=== PATIENT | male | born 1945 | race Caucasian/White ===

== ENCOUNTER → 2017-04-26 | Outpatient (CLI) | payer OTHER, MEDICARE | LOC: FIMAGING 13:01 | PROVIDERS: ATTEND Internal Medicine | DX: J98.09 Other diseases of bronchus, not elsewhere classified (principal) ==

== ENCOUNTER 2017-05-04 16:13 | Inpatient (IN) | payer OTHER, MEDICARE ==
[2017-05-04] MEDS ORDERED: ACETAMINOPHEN 325 MG TAB PO PRN (17:23)
[2017-05-04] MEDS ORDERED: ONDANSETRON 4 MG/2 ML VIAL IVP PRN (17:23)
[2017-05-04] MEDS ORDERED: ONDANSETRON DISINTEGRATING 4 MG TAB PO PRN (17:23)
[2017-05-04] MEDS ORDERED: TEMAZEPAM 15 MG CAP PO PRN (17:23)
[2017-05-04] MEDS: D5W 1/2 NS W/ 20 KCl/L 1,000 ML IV SCH (18:41)
--- NOTE | 2017-05-04 19:07 | GCON ---
[f rep st] CONSULTATION DATE OF CONSULTATION: 05/04/2017 CHIEF COMPLAINT: Diarrhea with malaise. HISTORY OF PRESENT ILLNESS: This is an otherwise healthy 72-year-old male who presented to his primary care provider in the middle of this month complaining of a week-long history of diarrhea. At that time, the patient stated that he was going to the bathroom about every hour to 2 hours and that the stools were usually liquid, without blood, without mucus, over the last week. The patient stated that the diarrhea persisted to the point where the patient was getting fairly fatigued, stating that whatever he took in usually came out pretty quickly, although he was still eating and able to take in his daily meals. Other than the diarrhea and just a general feeling of exhaustion from having diarrhea for 2 weeks, the patient denies having any fevers, having any chills, or any abdominal pain. He states that his last colonoscopy was in 2008, and other than the finding of diverticulosis, had no significant findings. He also tells me today that he did a colorectal cancer DNA test a few years ago as well , which was also negative. Other than the diarrhea, the patient has no complaints today. PAST MEDICAL HISTORY: Hypothyroidism, hypertension, BPH, sleep apnea, seasonal allergies, allergic rhinitis, asthma. PAST SURGICAL HISTORY: Bilateral knee procedures done in the 60s, as well as a more recent scope. Denies having any abdominal surgeries. Most recent colonoscopy was in 2008 and per his report was negative. FAMILY HISTORY: Negative for any colorectal cancer. Father from testicular or liver cancer, the patient is unclear. SOCIAL HISTORY: Retired systems software manager. Denies illicit drug use. Social drinker. Denies tobacco use. CURRENT MEDICATIONS: Reviewed. No blood thinners other than a baby aspirin daily. REVIEW OF SYSTEMS: A full 10-point review was performed. PHYSICAL EXAMINATION: VITAL SIGNS: Temperature 36.4, blood pressure 110/69, heart rate 89, he is 93% on room air. CONSTITUTIONAL: He is in no distress. He appears comfortable. HEENT: Eyes: His pupils are equal, round, reactive to light and accommodation. He has anicteric sclerae. His extraocular movements are intact. Ears, nose, mouth, throat: He has dry mucous membranes. His hearing is normal. His ears appear normal and he has no oral mucosal ulcers. CARDIOVASCULAR: He has a regular rate and rhythm without any appreciable murmurs. RESPIRATORY: He has no respiratory distress, rales, or rhonchi, and he is clear to auscultation. GI: He has normoactive bowel sounds. His abdomen is soft, nondistended, nontender without any appreciable masses. No rebound tenderness or guarding. RECTAL: External anal opening has signs of excoriation consistent with multiple weeks of diarrhea. External hemorrhoids are normal. Digital rectal exam shows stool within the rectal vault. No masses appreciated. Maybe some minimal thickening of the rectal wall , but nothing else appreciable. SKIN: Warm. Normal color. No rashes or abrasions. MUSCULOSKELETAL: Full strength. No tenderness. Normal joint range of motion. NEUROLOGIC: Alert and oriented x3. His cranial nerves 2-12 are intact. He has no weakness, no numbness. PSYCHIATRIC: He is interacting appropriately. He is not anxious, he is not encephalopathic, and his thought process is linear. LYMPHATIC/HEMATOLOGIC/IMMUNOLOGIC: No cervical, supraclavicular or groin lymphadenopathy appreciated. LABORATORY DATA: He had labs performed earlier today on an outpatient basis, which are significant for a leukocytosis to 19,000 with a left shift. His chemistry is largely unremarkable with the exception of an elevated CRP at 235. IMAGING: Includes a CT of the abdomen and pelvis with IV contrast, the images of which were personally reviewed. They show a significant amount of diverticulosis within the sigmoid colon. There is also a complex collection versus phlegmon anteriorly to a thickened rectum about 6-7 cm above the anal verge measuring 4 x 5 cm without any gas within it. ASSESSMENT AND PLAN: A 72-year-old male with what I would call chronic diarrhea and CT scan findings of a fluid collection. On my initial assessment, I would favor infectious process over cancerous given the patient's normal colonoscopy, as well as his normal DNA test performed recently. In addition, he also has a significant leukocytosis and what appears to be a fluid collection consistent with some kind of proctitis or diverticulitis. I do not appreciate anything on digital rectal exam, so I feel that the mass is probably higher than 6-7 cm. His clinical examination at this point in time is very reassuring. His abdomen is soft, his vital signs are stable, and he is overall well appearing. I feel that gastroenterology consultation will be beneficial. Should they see him fit for some kind of diagnostic endoscopy, I feel that this would help us make a diagnosis of malignancy versus infection, as I feel that would change the management process given his overall stability, so that we could make a definitive plan for drainage versus definitive cancer resection. We will plan to follow along and anxiously await those results. I discussed my tentative plan with the patient. He was willing to proceed at this point in time. I do agree with intravenous antibiotics, as I do feel that this more than likely at least has a component of infection at this time. /[id number]/MODL MTDD
[2017-05-05] MEDS: D5W 1/2 NS W/ 20 KCl/L 1,000 ML IV SCH (02:36)
[2017-05-05 05:33] LABS: PLATELET COUNT 307 10^3/uL (150-400)
--- NOTE | 2017-05-05 12:46 | ASMTCMCOM ---
CM Note CM Note Notes: Spoke w/RN, anticipate pt will dc home w/support of when medically stable. No therapies ordered, CM available for any changes. DC Plan: Independent Date Signed: 05/05/2017 12:45 PM Electronically Signed By:Priscila Pham RN
[2017-05-05] MEDS ORDERED: MIDAZOLAM 2 MG/2 ML VIAL ONE ×2 (13:58)
[2017-05-05] MEDS ORDERED: fentaNYL 100 MCG/2 ML INJ ONE ×2 (13:59→14:16)
--- NOTE | 2017-05-05 14:33 | GIREPORT ---
[facility] - Endoscopy Department Patient Name: Junaid Deluca Procedure Date: 05/05/2017 2:09 PM Patient Type: Inpatient Attending MD/ ER Physician: Benigno Bowers MD Procedure: Flexible Sigmoidoscopy Indications: Generalized abdominal pain, Abnormal CT of the GI tract Providers: Benigno Bowers MD Medicines: Fentanyl 125 micrograms IV, Midazolam 5 mg IV Complications: No immediate complications. Description of Procedure: After obtaining informed consent, the endoscope was passed under direct vision. Throughout the procedure, the patient's blood pressure, pulse, and oxygen saturations were monitored continuously. The Endoscope was intro duced through the anus and advanced to the left transverse colon. The flexibl e sigmoidoscopy was accomplished without difficulty. The patient tolerate d the procedure well. The quality of the bowel preparation was good. Moderate Sedation: Moderate (conscious) sedation was administered by the endoscopy nurse andrew funes supervised by the endoscopist. The following parameters were monitored: oxygen saturation, heart rate, blood pressure, and response to care. To torsten physician intraservice time was 27 minutes. Findings: Multiple small and large-mouthed diverticula were found in the sigmoid colon. An area of moderately congested mucosa was found in the sigmoid colon. Biopsies were taken with a cold forceps for histology. Estimated Blood Loss: Estimated blood loss: none. Estimated blood loss: none. Post Op Diagnosis: - Diverticulosis in the sigmoid colon. - Congested mucosa in the sigmoid colon. Biopsied. Recommendation: - [facility] to [facility] care. - Advance diet as tolerated. - Await pathology results. - Favor diagnosis of diverticulitis. IBD, malignancy, infection, ischem ia on differential diagnosis, but less likely. - Continue IV antibiotics. Attending Participation: I personally performed the entire procedure. Benigno Bowers MD Benigno Bowers MD 05/05/2017 2:32:22 PM This report has been signed electronicallyBenigno Bowers MD Number of Addenda: 0 Note Initiated On: 05/05/2017 2:09 PM Total Procedure Duration Time 0 hours 12 minutes 38 seconds [email or web address]
[2017-05-05] MEDS ORDERED: MIDAZOLAM 2 MG/2 ML VIAL IVP ONE (14:34)
[2017-05-05] MEDS ORDERED: fentaNYL 100 MCG/2 ML INJ IVP ONE (14:34)
--- NOTE | 2017-05-05 15:17 | GCON ---
[f rep st] CONSULTATION INPATIENT CONSULTATION REFERRING PHYSICIAN: Shane Deshpande MD REASON FOR CONSULTATION: Abdominal pain and abnormal x-ray. CHIEF COMPLAINT: Abdominal pain. HISTORY OF PRESENT ILLNESS: Briefly, the patient is a pleasant 72-year-old male who has been evaluat ed through his primary care physician over the last several weeks related to abdominal symptoms. He is reporting some diarrhea, cramping, and urgency with bowel movements. He gradually had symptoms of weakness and fatigue. With gradually worsening symptoms, he underwent CAT scan evaluation. CAT sca n revealed a diverticulosis area of the sigmoid colon with a complicated collection versus phlegmon a nteriorly to a thickened rectum just above the anal verge. This measured approximately 5 cm. In the setting of this radiographic finding and his ongoing symptoms, he was admitted to the hospital for s urgical and GI evaluation. PAST MEDICAL HISTORY: Includes hypothyroidism, hypertension, sleep apnea, seasonal allergies. PAST SURGICAL HISTORY: Includes knee surgery. He has had no abdominal surgeries. He reports his [facility] colonoscopy was in 2008 and was normal. FAMILY HISTORY: Negative for colon cancer or colon polyps. SOCIAL HISTORY: He drinks occasionally. Does not use drugs or smoke tobacco. ALLERGIES: To oxaprozin and penicillin. MEDICATIONS: His current medications are Tylenol, Zofran, temazepam, levofloxacin and metronidazole. His outpatient medicines included Flovent, hydrochlorothiazide, levothyroxine, lisinopril, Qvar, [place], albuterol, and Zithromax. REVIEW OF SYSTEMS: A complete 14-point review was undertaken with the patient and is negative except for the details described in the history of present illness. PHYSICAL EXAM: GENERAL: This is a well-developed male, in no apparent distress. HEENT: His pupils are equal, round, reactive to light and accommodation. His sclerae are nonicteric. His oropharynx is clear. NECK: Supple, without lymphadenopathy. HEART: Regular without murmur. ABDOMEN: Soft w ith mild tenderness in the left lower quadrant. EXTREMITIES: Free of cyanosis, clubbing, and edema. NEURO: Grossly nonfocal. PSYCH: Reveals normal mood and affect. SKIN: Without lesions. EXTREM ITIES: His joints show no arthritis. LABORATORY TESTING: Shows a white count of 11.3, hemoglobin of 12.5, hematocrit of 38.4. CT scan on 05/04/2017 revealed a complex collection/mass/phlegmon anterior to a markedly thickened re ctum. IMPRESSION AND RECOMMENDATIONS: Abdominal symptoms with abdominal pain. Overall, I am suspicious fo r complications of diverticulitis. The differential diagnosis could also include inflammatory bowel disease, infection, ischemia, or malignancy. In order to resolve this differential diagnosis, I marcia mmend he undergo flexible sigmoidoscopy. Due to underlying sleep apnea and asthma, he is at increase d risk of conscious sedation, but I do not think those risks outweigh the potential benefits. Meanwh ile, he should continue on IV antibiotics. Appreciate surgical help as in the case that this may be related to complications of diverticulitis, surgical care and direction will be critical. /[id number]/MODL
[2017-05-05] MEDS ORDERED: ALBUTEROL 60 PUFFS/8 GM MDI IH PRN (15:51)
[2017-05-05] MEDS ORDERED: CHLORPHENIRAMINE MALEATE 4 MG TAB PO PRN (15:51)
--- NOTE | 2017-05-05 16:17 | GHP ---
[f rep st] HISTORY AND PHYSICAL DATE OF ADMISSION: 05/04/2017 CHIEF COMPLAINT: Fever, abdominal discomfort, diarrhea, constipation, malaise. HISTORY OF PRESENT ILLNESS: The patient is a generally healthy 72-year-old white male. He has had an ongoing cough for the last month likely related to an upper respiratory infection, bronchitis perhaps with some reactive airway disease. He has had a chest x-ray recently and that can be seen in the system. This has actually been getting better. On a separate note, while he was dealing with the cough, he developed loose stools about 3-weeks ago and has had intermittent problems with that, most recently that turning into constipation. I saw him in the office today, 2017, and he seemed a little bit confused with description of diarrhea and constipation scenario. The day prior, based on a phone conversation where he described constipation we had used milk of magnesia and an fleets enema, and his bowel movements were better. When I saw him in the office on the , he looked tired, weak, and his noted that she thought he was looking worse on a daily basis. We proceeded with lab work based on abdominal discomfort, the story of worsening, and an abnormal rectal exam, this demonstrated significant abnormalities of significantly elevated white blood cell count of 19.18 with 88 % neutrophils and 16.87 ANC. ESR was elevated at 31, and CRP elevated at 235. Followup CT scan of the abdomen and pelvis primarily looking for diverticulitis or other noted a significant abnormal CT of the abdomen and pelvis with a fluid collection concerning for infection or cancer. Based on these results and the fact that the patient appeared to be getting worse in the last couple of days, direct admission was made to [facility] with consultation with General Surgery and Gastroenterology. I personally spoke with both consulting providers. REVIEW OF SYSTEMS: Complete Review of Systems was performed and otherwise negative except for the above situation. PAST MEDICAL HISTORY: Significant for hypertension, hyperlipidemia, coronary artery disease, benign prostatic hypertrophy, knee pain, asthma, reactive airway disease, hypothyroidism. CURRENT MEDICATIONS: Include: 1. Aspirin 81 mg. 2. Hydrochlorothiazide 12.5 mg once daily. 3. Levothyroxine 125 mcg once daily. 4. Lisinopril 20 mg once daily. 5. Montelukast. 6. Meloxicam. 7. Preservision. 8. ProAir. 9. Vitamin D. 10. Chlorpheniramine. ALLERGIES: 1. Penicillins, question rash. 2. Lorcet, unknown reaction. FAMILY HISTORY: Early in his father from coronary artery disease. SOCIAL HISTORY: No significant alcohol or tobacco. Lives at home with his . IMMUNIZATIONS: He is up to date on his current flu shot for this year. He is up to date on both pneumococcal vaccine. He is up to date on his tetanus. He is up to date on his shingles vaccine. PHYSICAL EXAMINATION: VITAL SIGNS: Blood pressure elevated at 172/92, heart rate 64, oxygen saturation 92%, he is afebrile. GENERAL: On exam, he looks weak and tired, and somewhat pale. He appears somewhat confused with slow recall. HEENT: Cranial nerves 2 through 12 are grossly intact. Hearing appears within normal limits. Oropharynx is normal. LUNGS: Clear to auscultation bilaterally. Normal work of breathing. No adventitious sounds. HEART: Regular rate and rhythm. ABDOMEN: Soft, no masses, there is left lower quadrant and suprapubic tenderness. RECTAL: Digital rectal exam demonstrates a hard, nodular prostate, question anterior mass, external hemorrhoids. SKIN: No concerning skin findings. NEURO: Gait within normal limits. DATA: See above for lab results and CT imaging. ASSESSMENT AND PLAN: 1. The patient is a 72-year-old white male with abdominal pain and abnormal lab and imaging studies. He is being admitted as a full admission. He has a significantly elevated white blood cell count and a fluid collection on CT of the abdomen and pelvis that likely needs either surgical care via general surgery or perirectal approach via Gastroenterology. This does not appear to be a self limiting situation. He will also need intravenous antibiotics. For these reasons he will be in the hospital for greater than 48-hours. This cannot be done in an outpatient setting. 2. The fluid collection on his CT scan is most likely diverticular disease ruptured. I will start him on levofloxacin and Flagyl. General Surgery and Gastroenterology will consult and guide therapy. Other components of the differential include a rectal cancer or inflammatory bowel disease. Blood cultures will be obtained prior to giving antibiotics. 3. Hypertension. He is markedly hypertensive as compared to his normally well- controlled blood pressure. He typically takes Lisinopril 20 mg once daily and hydrochlorothiazide 12.5 mg. The acute illness likely is pushing his blood pressure. We will make no changes. 4. His last colonoscopy was done 05/21/2008 and was normal. He will be due for a repeat colonoscopy in 2019. He did have Cologuard testing that was negative 05/07/2015. 5. Sleep apnea. He is controlled if he sleeps on his stomach or side. 6. Significant allergies, follows with Dr. Chin of [facility]. 7. Deep venous thrombosis prophylaxis at this point, will hold deep venous thrombosis prophylaxis until there is a better understanding if he will need to go to surgery or not. I do think he will be quite active and will encourage walking of the hospital floors while here 8. Code Status: He is full code. /[id number]/MODL MTDD
--- NOTE | 2017-05-05 16:26 | SOAPPROG ---
SOJAN[facility] Progress Note Assessment/Plan: Assessment/Plan: 72yi M c likely diverticular abscess - Symptomatically, he is doing much better today and states that he feels better with just a night of abx - discussed scope results with GI, favor diverticilar abscess, biopsies were taken - At this time given how good he looks clinically I would cont abx. I will discuss with IR whether or not this fluid collection is perc drainable as we await path. Would definitely continue antibiotics for the time being. Surgical drainage if decompensates, or fails to resolve with current regimen +/- perc drainage 05/05/17 16:23 Subjective: Feels much better, diarrhea is slowing. Objective: Vital Signs Temp Pulse Resp BP Pulse Ox 36.4 C 61 18 99/69 L 92 05/05/17 16:00 05/05/17 16:00 05/05/17 16:00 05/05/17 16:00 05/05/17 16:00 Laboratory Results 05/05/17 04:30 05/04/17 05/05/17 05/06/17 05:59 05:59 05:59 Intake Total 300 Balance 300 ICD10 Worksheet Patient Problems: Problems Problem Status Onset Colonic diverticular abscess Acute - ICD10 Problem Qualifiers (1) Colonic diverticular abscess
[2017-05-05] MEDS: ASPIRIN EC 81 MG TAB PO SCH (16:41)
[2017-05-06] MEDS: LEVOTHYROXINE 112 MCG TAB PO SCH (05:58)
[2017-05-06] MEDS: PRESERVISION AREDS2 FORMULA EYE VIT 1 EACH PO SCH (08:52)
[2017-05-06] MEDS: HYDROCHLOROTHIAZIDE 12.5 MG CAP PO SCH (08:53)
[2017-05-06] MEDS: LISINOPRIL 20 MG TAB PO SCH (08:53)
[2017-05-06] MEDS: MONTELUKAST SODIUM 10 MG TAB PO SCH (08:53)
[2017-05-06] MEDS: CHOLECALCIFEROL VIT D3 2,000 UNITS TAB/CAP PO SCH (08:53)
[2017-05-06] MEDS: CETIRIZINE 10 MG TAB PO SCH (08:54)
[2017-05-06] MEDS: ASPIRIN EC 81 MG TAB PO SCH (08:54)
--- NOTE | 2017-05-06 10:00 | SOAPPROG ---
SOAP Progress Note Assessment/Plan: Assessment/Plan: 1. Suspected Diverticulitis - improving on Abx - path specimen from flex sig pending (doubt malignancy, IBD, etc) - management largely per surgery at this point - hope to avoid operative need - will sign off, call with questions 05/06/17 09:58 Subjective: CC: f/u diverticulitis S: less pain no BMs last night tolerating po without trouble no fever no cough or sob Objective: Vital Signs Temp Pulse Resp BP Pulse Ox 36.7 C 80 18 127/89 H 95 05/06/17 07:31 05/06/17 07:31 05/06/17 07:31 05/06/17 08:53 05/06/17 07:31 Laboratory Results 05/05/17 04:30 05/05/17 05/06/17 05/07/17 05:59 05:59 05:59 Intake Total 850 Balance 850 Physical Exam - Physical Exam General Appearance: alert EENT: PERRL/EOMI Neck: non-tender Respiratory: lungs clear, normal breath sounds Cardiac/Chest: normal peripheral pulses, regular rate, rhythm, No edema Abdomen: normal bowel sounds, soft, No non-tender, No distended, No guarding Skin: normal color Extremities: normal range of motion Neuro/Psych: oriented x 3 ICD10 Worksheet Patient Problems: Problems Problem Status Onset Colonic diverticular abscess Acute
--- NOTE | 2017-05-06 10:06 | PDMN ---
Medical Necessity Medical necessity: est los>2mn for abd pain, elevated wbc, fluid collection per CT abd/pelvis, and elevated BP ; requires either surgical intervention vs perirectal approach per GI for fluid collection, and IV abx; comorbid CAD, HTN, NETO, asthma and RAD; per order 05/04/17 and H&P 05/05/17
--- NOTE | 2017-05-06 10:51 | SOAPPROG ---
SOJANINA Progress Note Assessment/Plan: Assessment/Plan: 72yi M c likely diverticular abscess - VSS, HDS - clinically continues to do and look well. He has no abdominal pain and his diarrhea is markedly improved - Path pending, but GI favoring infectious as am I from presentation - Given how well he looks clinically would continue IV antibiotics and await path. I discussed the case with radjaguar this AM and if path favors infectious we could get this perc drained. - Would still defer surgery for clinical decompensation or malignancy 05/05/17 16:23 05/06/17 10:49 Subjective: feels wonderful Objective: Vital Signs Temp Pulse Resp BP Pulse Ox 36.7 C 80 18 127/89 H 95 05/06/17 07:31 05/06/17 07:31 05/06/17 07:31 05/06/17 08:53 05/06/17 07:31 Laboratory Results 05/05/17 04:30 05/05/17 05/06/17 05/07/17 05:59 05:59 05:59 Intake Total 850 Balance 850 ICD10 Worksheet Patient Problems: Problems Problem Status Onset Colonic diverticular abscess Acute - ICD10 Problem Qualifiers (1) Colonic diverticular abscess
[2017-05-07] MEDS: LEVOTHYROXINE 112 MCG TAB PO SCH (05:27)
[2017-05-07 05:32] LABS: PLATELET COUNT 329 10^3/uL (150-400)
[2017-05-07] MEDS: HYDROCHLOROTHIAZIDE 12.5 MG CAP PO SCH (08:21)
[2017-05-07] MEDS: PRESERVISION AREDS2 FORMULA EYE VIT 1 EACH PO SCH (08:21)
[2017-05-07] MEDS: CHOLECALCIFEROL VIT D3 2,000 UNITS TAB/CAP PO SCH (08:22)
[2017-05-07] MEDS: LISINOPRIL 20 MG TAB PO SCH (08:22)
[2017-05-07] MEDS: ASPIRIN EC 81 MG TAB PO SCH (08:23)
[2017-05-07] MEDS: MONTELUKAST SODIUM 10 MG TAB PO SCH (08:23)
[2017-05-07] MEDS: CETIRIZINE 10 MG TAB PO SCH (08:23)
--- NOTE | 2017-05-07 09:38 | SOAPPROG ---
SOJANINA Progress Note Assessment/Plan: Assessment/Plan: 72yi M c likely diverticular abscess - VSS, HDS - Clinical picture still looks great, his abdomen remains soft and his diarrhea has essentially stopped - Path back this AM shows inflammation and no Ca. I think that we need to proceed with drainage as I anticipate that the fluid collection persists. This can either be done percutaneously or in OR. I think that he is good candidate for perc drainage. He wants to discuss with his PCP before proceeding. - Cont abx, hopefully get cx with drainage. 05/05/17 16:23 05/06/17 10:49 05/07/17 09:36 Subjective: Continues to feel well, denies pain. Objective: Vital Signs Temp Pulse Resp BP Pulse Ox 36.4 C 77 16 118/80 94 05/07/17 07:47 05/07/17 07:47 05/07/17 07:47 05/07/17 08:22 05/07/17 07:47 Laboratory Results 05/07/17 04:17 05/07/17 04:17 05/06/17 05/07/17 05/08/17 05:59 05:59 05:59 Intake Total 850 550 Balance 850 550 ICD10 Worksheet Patient Problems: Problems Problem Status Onset Colonic diverticular abscess Acute - ICD10 Problem Qualifiers (1) Colonic diverticular abscess
[2017-05-08 03:00] VITALS: RESP 16; TEMP 97.5
[2017-05-08] MEDS: LEVOTHYROXINE 112 MCG TAB PO SCH (05:14)
[2017-05-08 07:34] VITALS: BP 142/88; PULSE 66; O2SAT 94
[2017-05-08] MEDS: LISINOPRIL 20 MG TAB PO SCH (08:37)
[2017-05-08] MEDS: MONTELUKAST SODIUM 10 MG TAB PO SCH (08:38)
[2017-05-08] MEDS: PRESERVISION AREDS2 FORMULA EYE VIT 1 EACH PO SCH (08:38)
[2017-05-08] MEDS: ASPIRIN EC 81 MG TAB PO SCH (08:38)
[2017-05-08] MEDS: CETIRIZINE 10 MG TAB PO SCH (08:38)
[2017-05-08] MEDS: HYDROCHLOROTHIAZIDE 12.5 MG CAP PO SCH (08:38)
[2017-05-08] MEDS: CHOLECALCIFEROL VIT D3 2,000 UNITS TAB/CAP PO SCH (08:39)
[2017-05-08] MEDS ORDERED: metroNIDAZOLE 500 MG TAB PO SCH (14:00)
== END 2017-05-08 10:51 | disposition home or self-care (01) | DRG 392 ==
LOC: OBSVTOIN 17:21 → F3E 17:21
PROVIDERS: ADMIT Internal Medicine; ATTEND Internal Medicine
PROC: 0DBN8ZX Excision of Sigmoid Colon, Via Natural or Artificial Opening Endoscopic, Diagnostic (ICD-10-PCS; principal; 2017-05-05 14:06)
DX: K57.20 Diverticulitis of large intestine with perforation and abscess without bleeding (principal); R05 Cough; I25.10 Atherosclerotic heart disease of native coronary artery without angina pectoris; E78.5 Hyperlipidemia, unspecified; I10 Essential (primary) hypertension; N40.0 Benign prostatic hyperplasia without lower urinary tract symptoms; E03.9 Hypothyroidism, unspecified; J45.909 Unspecified asthma, uncomplicated; G47.30 Sleep apnea, unspecified
CPT/HCPCS: J1956; J2250; J3010

== ENCOUNTER → 2017-05-13 | Outpatient (CLI) | payer OTHER, MEDICARE ==
[~2017-05-13] MED LIST: IOPAMIDOL (ISOVUE-300) 100 ML BTL ONE
== END ==
LOC: FIMAGING 10:05
PROVIDERS: ATTEND Internal Medicine
DX: R93.3 Abnormal findings on diagnostic imaging of other parts of digestive tract (principal)
CPT/HCPCS: 74177; Q9967

== ENCOUNTER → 2017-06-03 | Outpatient (CLI) | payer OTHER, MEDICARE | LOC: FIMAGING 07:12 | PROVIDERS: ATTEND Internal Medicine | DX: S86.012A Strain of left Achilles tendon, initial encounter (principal); S96.812A Strain of other specified muscles and tendons at ankle and foot level, left foot, initial encounter ==

== ENCOUNTER → 2017-06-24 | Outpatient (CLI) | payer OTHER, MEDICARE | LOC: CIMAGING 09:11 | PROVIDERS: ATTEND Internal Medicine | DX: K57.30 Diverticulosis of large intestine without perforation or abscess without bleeding (principal); K59.00 Constipation, unspecified; N28.1 Cyst of kidney, acquired | CPT/HCPCS: 74177; Q9967 ==

== ENCOUNTER → 2018-01-29 | Outpatient (CLI) | payer OTHER, MEDICARE | LOC: FCPNEURO 23:46 | PROVIDERS: ATTEND Student in an Organized Health Care Education/Training Program | DX: G47.33 Obstructive sleep apnea (adult) (pediatric) (principal) ==

== ENCOUNTER → 2018-05-30 | Outpatient (CLI) | payer OTHER, MEDICARE ==
[~2018-05-30] MED LIST changes: +GADOBUTROL 10 ML VIAL IVP ONE; -IOPAMIDOL (ISOVUE-300) 100 ML BTL ONE
== END ==
LOC: FIMAGING 07:21
DX: C61 Malignant neoplasm of prostate (principal); K57.30 Diverticulosis of large intestine without perforation or abscess without bleeding
CPT/HCPCS: 72197; 76377; A9585

== ENCOUNTER → 2018-06-02 | Outpatient (CLI) | payer OTHER, MEDICARE | LOC: FIMAGING 06:41 | PROVIDERS: ATTEND Internal Medicine | DX: C61 Malignant neoplasm of prostate (principal); K57.30 Diverticulosis of large intestine without perforation or abscess without bleeding; R90.82 White matter disease, unspecified | CPT/HCPCS: 70553; 72197; 76377; A9585 ==

== ENCOUNTER → 2018-06-03 | Outpatient (CLI) | payer OTHER, MEDICARE | LOC: FIMAGING 09:08 | DX: C61 Malignant neoplasm of prostate (principal); K57.30 Diverticulosis of large intestine without perforation or abscess without bleeding ==

== ENCOUNTER → 2018-06-21 | Outpatient (CLI) | payer OTHER, MEDICARE | LOC: FIMAGING 08:15 | DX: C61 Malignant neoplasm of prostate (principal) | CPT/HCPCS: 78306; A9503 ==